=== PATIENT | female | born 1960 | race Caucasian/White ===

== ENCOUNTER 2016-08-30 14:47 | Outpatient (CLI) | payer OTHER | END 2016-08-30 14:48 | disposition critical access hospital (66) | LOC: EMS 14:47 | PROVIDERS: ATTEND Surgery | DX: R07.9 Chest pain, unspecified (principal) | CPT/HCPCS: A0425; A0427 ==

== ENCOUNTER 2016-08-30 15:11 | Emergency (ER) | payer OTHER ==
[2016-08-30 15:33] LABS: BASOPHILS # (AUTO) 0.1 10^3/uL (0.0-0.1); BASOPHILS % (AUTO) 0.8 %; EOSINOPHILS # (AUTO) 0.1 10^3/uL (0.0-0.7); EOSINOPHILS % (AUTO) 0.8 %; HCT - HEMATOCRIT 37.1 % (37.0-47.0); HGB - HEMOGLOBIN 12.6 g/dL (12.0-16.0); LYMPHOCYTES # (AUTO) 2.1 10^3/uL (1.5-3.5); LYMPHOCYTES % (AUTO) 27.4 %; MEAN CORPUSCULAR HEMOGLOBIN 31.2 pg (27.0-31.0); MEAN CORPUSCULAR VOLUME 91.8 fL (81.0-99.0); MONOCYTES # (AUTO) 0.6 10^3/uL (0.0-1.0); MONOCYTES % (AUTO) 7.9 %; NEUTROPHILS # (AUTO) 4.8 10^3/uL (1.5-6.6); NEUTROPHILS % (AUTO) 63.1 %; RED BLOOD COUNT 4.05 10^6/uL (4.20-5.40); RED CELL DISTRIBUTION WIDTH 12.6 % (12.0-15.0); UNCORRECTED WHITE BLOOD COUNT 7.7 x10^3/uL; WHITE BLOOD COUNT 7.7 x10^3/uL (4.8-10.8)
[2016-08-30 15:44] LABS: ALBUMIN/GLOBULIN RATIO 1.8 (1.0-2.2); BILIRUBIN,TOTAL 0.6 mg/dL (0.2-1.0); CALCIUM 9.1 mg/dL (8.5-10.3); CREATININE 0.5 mg/dL (0.4-1.0); POTASSIUM 3.5 mmol/L (3.5-5.0)
[2016-08-30] MEDS ORDERED: SODIUM CHLORIDE 0.9% 1,000 ML IV ONE (15:53)
--- NOTE | 2016-08-30 15:53 | ED Physician Documentation ---
PD HPI CHEST PAIN - Stated complaint Stated Complaint: CP - Chief complaint Chief Complaint: Cardiac - History obtained from History obtained from: Patient, Family - History of Present Illness Timing - onset: Enter time (0500), Today Timing - onset during: Rest Timing - duration: Hours Timing - details: Gradual onset, Now resolved Quality: Pressure, Aching Location: Left chest, Left shoulder/arm Radiation: Left upper extremity Improved by: Nitro Worsened by: Other (nothing) Associated symptoms: Nausea, Feeling faint / dizzy, Cough. No: Shortness of air , Diaphoresis Similar symptoms before: Has not had sx before Recently seen: Not recently seen - Additional information Additional information: 55 y/o healthy female with a family history of heart disease awoke this morning not feeling well and she developed nausea and lightheadedness. She went to get ready for work and developed pain in the upper chest on the left with radiation down the left arm. The pain persisted [place] and she was transported to the ED by ambulance and had resolution of symptoms in the ambulance with a single nitroglycerin. She feels well now. She did spend the day in the sun yesterday and did not hydrate well. She does not have a history of hypertension. She has had a stress echo 2 years ago. Review of Systems Constitutional: denies: Fever Eyes: denies: Decreased vision Ears: denies: Ear pain Nose: denies: Congestion Throat: denies: Sore throat Cardiac: reports: Chest pain / pressure. denies: Palpitations, Pedal edema, Calf pain Respiratory: denies: Dyspnea, Cough GI: reports: Nausea. denies: Abdominal Pain, Vomiting, Constipation, Diarrhea : denies: Dysuria, Frequency Skin: denies: Rash Musculoskeletal: denies: Neck pain, Back pain, Extremity pain Neurologic: denies: Generalized weakness, Focal weakness, Numbness, Headache, Head injury PD PAST MEDICAL HISTORY - Past Medical History Cardiovascular: None Respiratory: None Neuro: None Endocrine/Autoimmune: None GI: None [employer]: None : None HEENT: None Psych: None Musculoskeletal: None Derm: None - Past Surgical History Past Surgical History: No - Present Medications Home Medications: Ambulatory Orders Medication Instructions Recorded Confirmed Aspirin 81 mg PO 08/30/16 [place]-3/Dha/Epa/Fish Oil [Fish Oil 1 each PO 08/30/16 1,000 mg Softgel] Red Yeast Rice 600 mg PO DAILY 08/30/16 08/30/16 Ubidecarenone [Co Q-10] 10 mg PO 08/30/16 - Allergies Allergies/Adverse Reactions: Allergies Allergy/AdvReac Type Severity Reaction Status Date / Time Sulfa (Sulfonamide Allergy Unknown Verified 08/30/16 15:17 Antibiotics) - Social History Does the pt smoke?: No Smoking Status: Never smoker Does the pt drink ETOH?: Yes Does the pt have substance abuse?: No - Immunizations Immunizations are current?: Yes - POLST Patient has POLST: No PD ED PE NORMAL - Vitals Vital signs reviewed: Yes (mild systolic hypertension ) - General General: Alert and oriented X 3, No acute distress, Well developed/nourished - HEENT HEENT: Atraumatic, PERRL, EOMI, Ears normal, Moist mucous membranes - Neck Neck: Supple, no meningeal sign, No bony TTP - Cardiac Cardiac: RRR, No murmur - Respiratory Respiratory: No respiratory distress, Clear bilaterally - Abdomen Abdomen: Soft, Non tender - Back Back: No CVA TTP, No spinal TTP - Derm Derm: Normal color, Warm and dry, No rash - Extremities Extremities: No deformity, No edema - Neuro Neuro: Alert and oriented X 3, 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, No motor deficit, No sensory deficit, Normal speech - Psych Psych: Normal mood, Normal affect Results - Vitals Vitals: Vital Signs - 24 hr 08/30/16 08/30/16 08/30/16 15:13 15:48 15:52 Temperature 36.9 C Heart Rate 60 53 L Respiratory 16 16 Rate Blood Pressure 134/70 H 134/69 H Blood Pressure 134/69 H [Left] O2 Saturation 100 100 08/30/16 08/30/16 08/30/16 16:03 17:03 18:05 Temperature Heart Rate 51 L 55 L 56 L Respiratory 16 18 18 Rate Blood Pressure 123/67 128/82 H 124/73 Blood Pressure [Left] O2 Saturation 100 100 100 08/30/16 18:55 Temperature Heart Rate 64 Respiratory 18 Rate Blood Pressure 131/74 H Blood Pressure [Left] O2 Saturation 99 Oxygen O2 Source Room air - EKG (time done) 1522 Rate: Rate (enter#) (54) Rhythm: NSR Other comments: Other comments (RSR' in V1) Compare to prior EKG: Old EKG unavailable Computer interpretation: Agree with computer - Labs Labs: Laboratory Tests 08/30/16 08/30/16 08/30/16 15:26 15:26 15:26 WBC 7.7 RBC 4.05 L Hgb 12.6 Hct 37.1 MCV 91.8 MCH 31.2 H MCHC 34.0 RDW 12.6 Plt Count 248 MPV 8.0 Neut # 4.8 Lymph # 2.1 Coke # 0.6 Eos # 0.1 Baso # 0.1 Absolute Nucleated RBC 0.00 Nucleated RBCs 0.0 Sodium 138 Potassium 3.5 Chloride 102 Carbon Dioxide 29 Anion Gap 7.0 BUN 12 Creatinine 0.5 Estimated GFR (MDRD) 128 Glucose 92 Calcium 9.1 Total Bilirubin 0.6 AST 23 ALT 26 Alkaline Phosphatase 87 Troponin I < 0.04 Total Protein 7.0 Albumin 4.5 Globulin 2.5 Albumin/Globulin Ratio 1.8 Lipase 22 - Rads (name of study) 1 view chest Radiology: Prelim report reviewed (Impression: Distal aspect of the ascending thoracic aorta appears more prominent than the prior, could be difference in technique. An upright PA and lateral chest x-ray could further evaluate. Differential includes a tortuous or ectatic ascending thoracic aortic at the distal aspect. Aortic dissection not excluded.), EMP read indepedently, See rad report CT angio chest Radiology: Prelim report reviewed (Impression: 1. No evidence of aortic dissection or aneurysm. 2. No evidence of acute pulmonary embolism.3. The lungs demonstrate no consolidation or effusion.4. Reflux of contrast into the IVC and relative enlargement of the azygos suggest right heart dysfunction. Addendum: There is azygous continuation of the IVC which accounts for the relative enlargement of the azygos vein.), Discussed with rads, EMP read indepedently, See rad report Procedures - IVC sono (time) 1530 Bedside IVC sono: IVC measures (cm) (1.23), Dehydration (mild) PD MEDICAL DECISION MAKING - ED course Complexity details: reviewed old records, reviewed results, re-evaluated patient , considered differential, d/w patient, d/w family ED course: 55 y/o female with left shoulder pain all day with neg trop and normal EKG has an outbreak of HSV 1 related to ongoing stress. Here in the Emergency department she is found to be dehydrated an received a liter of saline IV. 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 This is not likely playing any role in the presentation today. I discussed admission to the hospital with the patient for observation and we do not have capability to perform ETT here tomorrow and I believe this would be the only reason to keep the patient in the hospital. She will pursue ETT through [place] emergency department tomorrow. Through the day she has noted the onset of HSV breakout and she indicates that this usually makes her feel poorly and she feels this coming on and it feels like it is going to be a bad one. She is given an IV dose of acylcovir. Departure - Departure Disposition: 01 Home, Self Care Clinical Impression: Atypical chest pain, Recurrent HSV (herpes simplex virus) Condition: Stable Instructions: ED Chest Pain Atypical Unkn Cause Follow-Up: HILARIO Gupta [Provider Group] Comments: Follow up with your primary care doctor to schedule an exercise treadmill test to interrogate your heart. Take your usual dose of acyclovir.
--- NOTE | 2016-08-30 15:56 | XRAY Report ---
EXAM: CHEST RADIOGRAPHY EXAM DATE: 08/30/2016 03:33 PM. CLINICAL HISTORY: Chest pain. COMPARISON: Chest 12/02/2010. TECHNIQUE: 1 view. FINDINGS: Lungs/Pleura: No focal opacities evident. No pleural effusion. No pneumothorax. Mediastinum: Normal heart size. Distal aspect of the ascending thoracic aorta appears more prominent than the prior, could be difference in technique. An upright PA and lateral chest x-ray could further evaluate. Differential includes a tortuous or ectatic ascending thoracic aorta at the distal aspect. IMPRESSION: Distal aspect of the ascending thoracic aorta appears more prominent than the prior, coul d be difference in technique. An upright PA and lateral chest x-ray could further evaluate. Different ial includes a tortuous or ectatic ascending thoracic aorta at the distal aspect. Aortic dissection n ot excluded. [facility] Referring Provider Line: [phone] SITE ID: [id number]
[2016-08-30] MEDS ORDERED: IOPAMIDOL-300 100 ML VIAL IVP ONE (18:23)
--- NOTE | 2016-08-30 19:02 | CT Preliminary Report ---
Exam: CT Chest Angio (AORTA) IMPRESSION: 1. No evidence of aortic dissection or aneurysm. 2. No evidence of acute pulmonary embolism. 3. The lungs demonstrate no consolidation or effusion. 4. Reflux of contrast into the IVC and relative enlargement of the azygos suggest right heart dysfunc tion. [facility] SITE ID: [id number]
--- NOTE | 2016-08-30 19:05 | CT Report ---
<H1.> EXAM: CT ANGIOGRAM CHEST EXAM DATE: 08/30/2016 06:27 PM. CLINICAL HISTORY: Chest pain . COMPARISONS: None. TECHNIQUE: Routine axial helical CT angiographic imaging was performed through the chest. IV Contrast: Yes. Dario nstructions: Coronal, sagittal, and 3D MIP reconstructions of the aorta. In accordance with CT protocol optimization, one or more of the following dose reduction techniques w ere utilized for this exam: automated exposure control, adjustment of mA and/or KV based on patient s ize, or use of iterative reconstructive technique. FINDINGS: Vascular Structures: No aneurysm, dissection, or significant atherosclerotic disease of the thoracic aorta, abdominal aorta, or iliac arteries. The visualized pulmonary, mesenteric, and solid organ vasc ular structures are also within normal limits. Lungs/Pleura: No consolidation, nodules, or edema. No effusions or pneumothorax. Mediastinum: Heart size is within normal limits. There are no enlarged axillary, supraclavicular, med iastinal, or hilar lymph nodes. Enlargement of the azygos vein and reflux of contrast into the IVC co uld reflect right heart dysfunction. Abdominal Organs: The visualized liver, spleen, pancreas, adrenal glands, gallbladder and kidneys are normal in size and demonstrate no masses or abnormal enhancement. Peritoneal Cavity: Visualized gastrointestinal tract is within normal limits. Other: None. IMPRESSION: 1. No evidence of aortic dissection or aneurysm. 2. No evidence of acute pulmonary embolism. 3. The lungs demonstrate no consolidation or effusion. 4. Reflux of contrast into the IVC and relative enlargement of the azygos suggest right heart dysfunc tion. [facility] Referring Provider Line: [phone] SITE ID: [id number]
[2016-08-30] MEDS ORDERED: ACYCLOVIR INJ 500 MG in SODIUM CHLORIDE 0.9% 250 ML IV STA (19:36)
[2016-08-30 21:03] VITALS: BP 114/67
== END 2016-08-30 21:04 | disposition home or self-care (01) ==
LOC: EDUNIT# → ED 15:11
DX: R07.89 Other chest pain (principal); B00.9 Herpesviral infection, unspecified; Z82.49 Family history of ischemic heart disease and other diseases of the circulatory system; Z79.82 Long term (current) use of aspirin
CPT/HCPCS: 36415; 71010; 71275; 80053; 83690; 84484; 85025; 93005; 96374; 99284; 99285; J0133; Q9967

== ENCOUNTER 2018-09-28 17:09 | Outpatient (CLI) | payer OTHER ==
--- NOTE | 2018-09-29 12:17 | MRI Report ---
Reason: UNSEPCIFIED INJURY OF UNSPECIFIED WRIST,HAND AND F Procedure Date: 09/28/2018 Accession Number: [id number] / [id number] Procedure: MRI - Hand RT W/O CPT Code: FULL RESULT: EXAM: RIGHT HAND MRI WITHOUT CONTRAST EXAM DATE: 09/28/2018 06:47 PM. CLINICAL HISTORY: Right fifth finger involuntary movement following a fall one month ago. COMPARISON: None. TECHNIQUE: Multiplanar, multisequence T1-weighted and fluid-sensitive sequences of the hand without contrast. Other: None. FINDINGS: Bones: Comminuted fracture of the base of the fifth metacarpal with one third shaft width lateral displacement of the distal fracture fragment. No additional fractures. Cartilage: The articular cartilage is unremarkable. Ligaments: The visualized collateral ligaments are intact. Tendons: The flexor and extensor tendons are unremarkable. Musculature: No edema or fatty atrophy. Other: No joint effusions. The subcutaneous tissues are unremarkable. IMPRESSION: Comminuted fracture of the base of the fifth metacarpal. [facility]
== END 2018-09-28 17:10 | disposition home or self-care (01) ==
LOC: DI 17:09
PROVIDERS: ATTEND Family Medicine
DX: S62.316A Displaced fracture of base of fifth metacarpal bone, right hand, initial encounter for closed fracture (principal)

== ENCOUNTER 2020-12-04 13:43 | Outpatient (CLI) | payer OTHER ==
--- NOTE | 2020-12-05 10:11 | Mammography Report ---
BILATERAL DIGITAL SCREENING MAMMOGRAM 3D/2D: 12/04/2020 CLINICAL: Routine screening. Comparison is made to exams dated: 06/06/2013 mammogram, 05/18/2012 mammogram, 06/17/2009 mammogram, and 04/18/2008 mammogram - [facility]. The tissue of both breasts is predominantly fat ty. No significant masses, calcifications, or other findings are seen in either breast. There has been no significant interval change. IMPRESSION: NEGATIVE There is no mammographic evidence of malignancy. A 1 year screening mammogram is recommended. This exam was interpreted at Station ID: [id number]. NOTE: For mammograms, a report in lay terms will be sent to the patient. Approximately 15% of breast malignancies will not be visualized mammographically. In the management of a palpable breast mass, a negative mammogram must not discourage biopsy of a clinically suspicious lesion. Electronically Signed By: Pepito Villa acr/penrad:12/04/2020 14:18:04 ACR BI-RADS Category 1: Negative 3341F PARENCHYMAL PATTERN: (F) - The breast(s) demonstrate(s) diffuse fatty replacement. BI-RADS CATEGORY: (1) - 1 RECOMMENDATION: (ANNUAL) - Recommend routine annual screening mammography. [id number] 1 year screening LATERALITY: (B)
== END 2020-12-04 13:44 | disposition home or self-care (01) ==
LOC: DI 13:43
DX: Z12.31 Encounter for screening mammogram for malignant neoplasm of breast (principal)